=== PATIENT | male | born 1995 | race Caucasian/White ===

== ENCOUNTER 2017-10-30 14:57 | Emergency (ER) | payer SELFPAY ==
[~2017-10-30] VITALS: Ht 177.8 cm; Wt 106.6 kg
[2017-10-30 18:01] LABS: BASOPHILS # (AUTO) 0.1 10^3/uL (0.0-0.1); BASOPHILS % (AUTO) 1 % (0-10); EOSINOPHILS # (AUTO) 0.2 10^3/uL (0.0-0.3); EOSINOPHILS % (AUTO) 2 % (0-10); HEMATOCRIT 47 % (40-54); HEMOGLOBIN 16.5 G/DL (13.3-17.7); LYMPHOCYTES # (AUTO) 2.1 X 10^3 (1.0-4.0); LYMPHOCYTES % (AUTO) 21 % (12-44); MEAN CORPUSCULAR HEMOGLOBIN 30 PG (25-34); MEAN CORPUSCULAR HGB CONC 35 G/DL (32-36); MEAN CORPUSCULAR VOLUME 85 FL (80-99); MEAN PLATELET VOLUME 10.6 FL (7.4-10.4); MONOCYTES # (AUTO) 0.7 X 10^3 (0.0-1.0); MONOCYTES % (AUTO) 7 % (0-12); NEUTROPHILS % (AUTO) 70 % (42-75); PLATELET COUNT 198 10^3/uL (130-400); RED BLOOD COUNT 5.53 10^6/uL (4.35-5.85); RED CELL DISTRIBUTION WIDTH 13.6 % (10.0-14.5)
[2017-10-30 18:03] LABS: BILIRUBIN,URINE NEGATIVE (NEGATIVE); CLARITY,URINE CLEAR; COLOR,URINE YELLOW; GLUCOSE, URINE (UA) NEGATIVE (NEGATIVE); KETONES,URINE NEGATIVE (NEGATIVE); LEUKOCYTE ESTERASE ,URINE NEGATIVE (NEGATIVE); NITRITE,URINE NEGATIVE (NEGATIVE); PH,URINE 6 (5-9); PROTEIN,URINE NEGATIVE (NEGATIVE); UROBILINOGEN,URINE NORMAL (NORMAL)
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
[2017-10-30 18:14] LABS: AMPHETAMINE SCREEN, URINE NEGATIVE (NEGATIVE); BARBITURATE SCREEN URINE NEGATIVE (NEGATIVE); BENZODIAZEPINES SCREEN URINE NEGATIVE (NEGATIVE); CANNABINOID SCREEN, URINE POSITIVE (NEGATIVE); COCAINE SCREEN URINE NEGATIVE (NEGATIVE); METHADONE STAT NEGATIVE (NEGATIVE); METHAMPHETAMINE SCREEN URINE S NEGATIVE (NEGATIVE); OPIATE SCREEN URINE NEGATIVE (NEGATIVE); OXYCODONE STAT NEGATIVE (NEGATIVE); PROPOXYPHENE STAT NEGATIVE (NEGATIVE); TRICYCLIC ANTIDEPRESSANTS SCRE NEGATIVE (NEGATIVE)
[2017-10-30 18:20] LABS: BACTERIA,URINE NEGATIVE /HPF
[2017-10-30 19:22] LABS: ALANINE AMINOTRANSFERASE 30 U/L (0-55); ALBUMIN 4.7 GM/DL (3.2-4.5); ALKALINE PHOSPHATASE 52 U/L (40-136); BILIRUBIN,TOTAL 0.8 MG/DL (0.1-1.0); BUN/CREATININE RATIO 8; CALCIUM 9.9 MG/DL (8.5-10.1); CARBON DIOXIDE 21 MMOL/L (21-32); CHLORIDE 105 MMOL/L (98-107); CREATININE SERUM 0.96 MG/DL (0.60-1.30); GFR ESTIMATED > 60; GLUCOSE 101 MG/DL (70-105); POTASSIUM 4.1 MMOL/L (3.6-5.0); SALICYLATE < 5.0 MG/DL (5.0-20.0); SODIUM 140 MMOL/L (135-145)
[2017-10-30 19:36] LABS: ACETAMINOPHEN < 10 UG/ML (10-30)
[2017-10-30 20:00] VITALS: BP 149/93
[2017-11-01 08:46] LABS: HEPATITIS C ANTIBODY C Non-Reactive (Non-Reactive)
== END 2017-10-30 20:00 | disposition home or self-care (01) ==
LOC: ER 15:00
DX: B36.0 Pityriasis versicolor (principal); F41.9 Anxiety disorder, unspecified; G43.909 Migraine, unspecified, not intractable, without status migrainosus; F12.10 Cannabis abuse, uncomplicated
CPT/HCPCS: 36415; 80053; 80074; 80306; 80320; 80329; 81000; 84443; 85025; 86703; 86780; 87491; 87591; 93005

== ENCOUNTER → 2023-05-01 | Emergency (ER) | payer SELFPAY ==
[~2023-05-01] VITALS: Ht 177.8 cm; Wt 113.0 kg
[2023-05-01 21:50] VITALS: BP 171/90
--- NOTE | 2023-05-01 22:10 | ED Abdominal Pain ---
General Chief Complaint: - Reproductive Stated Complaint: LEFT ARM/BLADDER/GROIN PAIN Source of Information: Patient Exam Limitations: No Limitations History of Present Illness Date Seen by Provider: May 01, 2023 Time Seen by Provider: 21:55 Initial Comments Patient is a 27yo male who presents to the ER with a complaint of lower abd ominal pain, difficulty urinating off and on over the last 2 years, worse in the last 2 weeks. He has not had insurance and has not followed up with a primary care doctor. Was seen at [place] [facility] 2 and a half weeks ago, states he just had a urinalysis and was prescribed Flomax. Referred to Dr Gustafson (Urology) and he states Dr Gustafson refused to see him. Has not been taking any other medications for the discomfort. He states the flomax does help some and in the last 2 days he has been taking it twice a day. Denies blood in his urine or actual dysuria. Does occasionally have urgency. "Sharp" bladder pain. No problems with bowel movements. No painful or difficulty with erections. No painful ejaculation. No swelling. He points to his bilateral inguinal canals as the source of pain and just a bit higher on the left in the LLQ. He states at times the pain radiates into his scrotum. Denies feeling any masses in his scrotum or testicles. No prior surgeries. No heavy lifting/history of hernias. Timing/Duration: 2-3 Days Severity/Quality: Aching, Sharp Location: Periumbilical, Suprapubic Radiation: Other (scrotum) Activities at Onset: None Associated Symptoms: Denies Symptoms Allergies and Home Medications Allergies Coded Allergies: No Known Drug Allergies (Unverified , 10/30/17) Patient Home Medication List Home Medication List Reviewed: Yes No Active Prescriptions or Reported Meds Review of Systems Review of Systems Constitutional: see HPI Respiratory: No Symptoms Reported Cardiovascular: No Symptoms Reported Gastrointestinal: Abdominal Pain Genitourinary: Pain Musculoskeletal: no symptoms reported Skin: no symptoms reported All Other Systems Reviewed Negative Unless Noted: Yes Past Xizmqby-Rlbwwp-Donfwu Hx Past Medical History Surgeries: No Respiratory: No Cardiac: No Neurological: Yes Headaches /Migraines Genitourinary: No Gastrointestinal: No Musculoskeletal: No Endocrine: No Family Medical History No Pertinent Family Hx Physical Exam Vital Signs Vital Signs - First Documented 05/01/23 21:46 Temp 36.5 Pulse 79 Resp 16 B/P (MAP) 171/90 (117) Pulse Ox 100 O2 Delivery Room Air Capillary Refill : Height/Weight/BMI Height: 5'10.00" Weight: 235lbs. oz. 106.867946wn; BMI Method:Stated General Appearance: WD/WN, no apparent distress HEENT: PERRL/EOMI Respiratory: lungs clear, normal breath sounds, no respiratory distress, no accessory muscle use Cardiovascular: regular rate, rhythm Gastrointestinal: normal bowel sounds, soft, tenderness (LLQ) Genital/Rectal: normal genital exam; No blood at urethral meatus; other (no palpable inguinal LAD or hernias; no scrotal masses; uncirc) Extremities: normal range of motion, normal inspection Male: normal genitalia, no hernia, inguinal tenderness Neurologic/Psychiatric: alert, normal mood/affect, oriented x 3 Skin: normal color, warm/dry Progress/Results/Core Measures Results/Orders Lab Results Laboratory Tests Test 05/01/23 22:04 05/01/23 22:05 Range/Units White Blood Count 11.9 H 4.3-11.0 10^3/uL Red Blood Count 5.49 4.30-5.52 10^6/uL Hemoglobin 15.9 13.3-17.7 g/dL Hematocrit 48 40-54 % Mean Corpuscular Volume 87 80-99 fL Mean Corpuscular Hemoglobin 29 25-34 pg Mean Corpuscular Hemoglobin Concent 33 32-36 g/dL Red Cell Distribution Width 12.7 10.0-14.5 % Platelet Count 228 130-400 10^3/uL Mean Platelet Volume 10.2 9.0-12.2 fL Immature Granulocyte % (Auto) 0 % Neutrophils (%) (Auto) 51 42-75 % Lymphocytes (%) (Auto) 37 12-44 % Monocytes (%) (Auto) 9 0-12 % Eosinophils (%) (Auto) 2 0-10 % Basophils (%) (Auto) 1 0-10 % Neutrophils # (Auto) 6.1 1.8-7.8 10^3/uL Lymphocytes # (Auto) 4.4 H 1.0-4.0 10^3/uL Monocytes # (Auto) 1.0 0.0-1.0 10^3/uL Eosinophils # (Auto) 0.2 0.0-0.3 10^3/uL Basophils # (Auto) 0.1 0.0-0.1 10^3/uL Immature Granulocyte # (Auto) 0.0 0.0-0.1 10^3/uL Sodium Level 144 135-145 MMOL/L Potassium Level 4.6 3.6-5.0 MMOL/L Chloride Level 108 H 98-107 MMOL/L Carbon Dioxide Level 25 21-32 MMOL/L Anion Gap 11 5-14 MMOL/L Blood Urea Nitrogen 9 7-18 MG/DL Creatinine 1.11 0.60-1.30 MG/DL Estimat Glomerular Filtration Rate 94 BUN/Creatinine Ratio 8 Glucose Level 104 70-105 MG/DL Calcium Level 9.7 8.5-10.1 MG/DL Urine Color YELLOW Urine Clarity CLEAR Urine pH 8.5 5-9 Urine Specific [place] 1.015 L 1.016-1.022 Urine Protein NEGATIVE NEGATIVE Urine Glucose (UA) NEGATIVE NEGATIVE Urine Ketones TRACE H NEGATIVE Urine Nitrite NEGATIVE NEGATIVE Urine Bilirubin NEGATIVE NEGATIVE Urine Urobilinogen 0.2 < = 1.0 MG/DL Urine Leukocyte Esterase NEGATIVE NEGATIVE Urine RBC (Auto) NEGATIVE NEGATIVE Urine RBC 0-2 /HPF Urine WBC NONE /HPF Urine Squamous Epithelial Cells NONE /HPF Urine Crystals PRESENT H /LPF Urine Amorphous Sediment MOD LUCHO PHOSPHATE H /LPF Urine Bacteria NEGATIVE /HPF Urine Casts NONE /LPF Urine Mucus SMALL H /LPF Urine Culture Indicated NO My Orders Orders - JONO BILLINGSLEY MD Ed Iv/Invasive Line Start (05/01/23 22:02) Cbc With Automated Diff (05/01/23 22:02) Ua Culture If Indicated (05/01/23 22:02) Basic Metabolic Panel (05/01/23 22:02) Ct Abdomen/Pelvis W (05/01/23 22:02) Neis Agustín Dna Urine Test (05/01/23 23:51) Chlamydia Trachomatis Urine (05/01/23 23:51) Vital Signs/I&O 05/01/23 05/01/23 21:46 21:50 Temp 36.5 36.7 Pulse 79 79 Resp 16 14 B/P (MAP) 171/90 (117) 171/90 Pulse Ox 100 98 O2 Delivery Room Air Room Air Progress Progress Note : Time: 23:40 Progress Note Patient is seen and evaluated by me. Evaluation today includes physical exam, CBC, basic metabolic panel, urinalysis, CT scan of the abdomen and pelvis with IV contrast. Pertinent physical exam findings well-developed well-nourished male no acute distress, stable vitals. Afebrile. Patient has mild tenderness in the lower abdomen more pronounced on the left. exam is unremarkable, no testicular tenderness, swelling, masses. Circumcised. No penile discharge. No evidence of inguinal hernia bilaterally. Differential diagnosis based on history and physical examination, acute diverticulitis, urinary tract infection, prostatitis, kidney stone Labs independently reviewed and interpreted by me. His CBC is normal with a slightly elevated white blood cell count of 11.9. Chemistry unremarkable, urinalysis shows no evidence of infection or hematuria. CT scan of the abdomen and pelvis is also unremarkable. Patient is provided reassurance. No findings concerning for acute infection, diverticulitis UTI. Not clinically concerned about acute prostatitis. The patient did request testing for STDs. Urine for gonorrhea and chlamydia has also been added. Recommended that he continue his Flomax and follow-up with a urologist. Names provided for primary care as well as urology services in [place]. Patient is appreciative of care. All questions are sought and answered. No clinical or objective findings to warrant further studies from the emergency department. Patient is stable for discharge. Diagnostic Imaging Diagonstic Imaging: CT Comments [facility], [place] NAME: WILLIAN [facility] REC#: [id number] PT STATUS: REG ER : 1995 PHYSICIAN: JONO BILLINGSLEY MD ADMIT DATE: 05/01/23/ER Draft Date of Exam:05/01/23 CT ABDOMEN/PELVIS W PROCEDURE: CT abdomen and pelvis with contrast. TECHNIQUE: Multiple contiguous axial images were obtained through the abdomen and pelvis after administration of intravenous contrast. Auto Exposure Controls were utilized during the CT exam to meet ALARA standards for radiation dose reduction. All CT scans use one or more of the following dose optimizing techniques: automated exposure control, MA and/or KvP adjustment based on patient size and exam type or iterative reconstruction. INDICATION: 27-year-old male presents with severe lower abdominal and pelvic pain. COMPARISONS: None. FINDINGS: Lung bases are clear. Cardiac contour is normal. Liver shows uniform attenuation. Gallbladder is nondistended. Spleen and GE junction are normal. Stomach and duodenal sweep are unremarkable. Pancreas shows sharp margins. Adrenals are normal. Kidneys appear normal in size, position and contour with symmetrical perfusion of contrast. There is no evidence of obstructive uropathy. Both ureters are seen intermittently through their course and appear unremarkable. Bladder is nondistended. Nonopacified loops of small bowel are normal. Appendix is normal. Large bowel contains fecal material and gas but is mostly decompressed. There is no free air, free fluid or adenopathy. There is normal caliber of aorta, iliac and femoral arteries with normal origin of the visceral arteries. Bone windows show no overall gross abnormalities. IMPRESSION: Unremarkable postcontrast CT of the abdomen and pelvis. There is no evidence of cholecystitis, appendicitis or obstructive uropathy. No areas of peritoneal inflammation seen. Additional nonemergent findings as described above. Agree with [place] report. Dictated on workstation # [id number] Dict: 05/02/23 0502 Trans: 05/02/23 0541 [id number] Interpreted by: ELIAN WILSON MD Electronically signed by: Departure Impression Primary Impression: Lower abdominal pain Disposition: HOME, SELF-CARE Condition: Stable Departure-Patient Inst. Decision time for Depature: 23:44 Referrals: NO,LOCAL PHYSICIAN (PCP/Family) Primary Care Physician Patient Instructions: Abdominal pain Add. Discharge Instructions: Drink plenty of fluids to stay well hydrated. You can take over the counter Aleve (naproxen) 2 pills twice a day with food for pain. Always take it with food. Continue the flomax if it is helping - but really you should only take it once a day. You will need to follow up with a family doctor - Dr Yvan Watson, Dr Gustabo Correa and Dr Antwan Matias - are some names to consider. Dr Homar Arora is a Urologist (I believe) still practicing through [place]. Office: [facility] [phone] Return to the Emergency Department for any new, concerning or emergent complaints. Scripts No Active Prescriptions or Reported Meds JONO BILLINGSLEY MD May 01, 2023 22:10
[2023-05-01 22:14] LABS: BASOPHILS # (AUTO) 0.1 10^3/uL (0.0-0.1); BASOPHILS % (AUTO) 1 % (0-10); EOSINOPHILS # (AUTO) 0.2 10^3/uL (0.0-0.3); EOSINOPHILS % (AUTO) 2 % (0-10); HEMATOCRIT 48 % (40-54); HEMOGLOBIN 15.9 g/dL (13.3-17.7); LYMPHOCYTES # (AUTO) 4.4 10^3/uL (1.0-4.0); LYMPHOCYTES % (AUTO) 37 % (12-44); MEAN CORPUSCULAR HEMOGLOBIN 29 pg (25-34); MEAN CORPUSCULAR HGB CONC 33 g/dL (32-36); MEAN CORPUSCULAR VOLUME 87 fL (80-99); MEAN PLATELET VOLUME 10.2 fL (9.0-12.2); MONOCYTES % (AUTO) 9 % (0-12); NEUTROPHILS # (AUTO) 6.1 10^3/uL (1.8-7.8); NEUTROPHILS % (AUTO) 51 % (42-75); PLATELET COUNT 228 10^3/uL (130-400); WHITE BLOOD COUNT 11.9 10^3/uL (4.3-11.0)
[2023-05-01 22:18] LABS: BILIRUBIN,URINE NEGATIVE (NEGATIVE); CLARITY,URINE CLEAR; COLOR,URINE YELLOW; GLUCOSE, URINE (UA) NEGATIVE (NEGATIVE); KETONES,URINE TRACE (NEGATIVE); LEUKOCYTE ESTERASE ,URINE NEGATIVE (NEGATIVE); NITRITE,URINE NEGATIVE (NEGATIVE); PH,URINE 8.5 (5-9); PROTEIN,URINE NEGATIVE (NEGATIVE)
[2023-05-01 22:20] LABS: POTASSIUM 4.6 MMOL/L (3.6-5.0)
[2023-05-01 22:20] LABS: AMORPHOUS SEDIMENT,UR MOD AMOR PHOSPHATE /LPF; BACTERIA,URINE NEGATIVE /HPF; RBC,URINE 0-2 /HPF
[2023-05-01 22:21] LABS: CALCIUM 9.7 MG/DL (8.5-10.1)
[2023-05-01 22:25] LABS: CREATININE SERUM 1.11 MG/DL (0.60-1.30)
--- NOTE | 2023-05-02 05:42 | Diagnostic Imaging Report ---
PROCEDURE: CT abdomen and pelvis with contrast. TECHNIQUE: Multiple contiguous axial images were obtained through the abdomen and pelvis after administration of intravenous contrast. Auto Exposure Controls were utilized during the CT exam to meet ALARA standards for radiation dose reduction. All CT scans use one or more of the following dose optimizing techniques: automated exposure control, MA and/or KvP adjustment based on patient size and exam type or iterative reconstruction. INDICATION: 27-year-old male presents with severe lower abdominal and pelvic pain. COMPARISONS: None. FINDINGS: Lung bases are clear. Cardiac contour is normal. Liver shows uniform attenuation. Gallbladder is nondistended. Spleen and GE junction are normal. Stomach and duodenal sweep are unremarkable. Pancreas shows sharp margins. Adrenals are normal. Kidneys appear normal in size, position and contour with symmetrical perfusion of contrast. There is no evidence of obstructive uropathy. Both ureters are seen intermittently through their course and appear unremarkable. Bladder is nondistended. Nonopacified loops of small bowel are normal. Appendix is normal. Large bowel contains fecal material and gas but is mostly decompressed. There is no free air, free fluid or adenopathy. There is normal caliber of aorta, iliac and femoral arteries with normal origin of the visceral arteries. Bone windows show no overall gross abnormalities. IMPRESSION: Unremarkable postcontrast CT of the abdomen and pelvis. There is no evidence of cholecystitis, appendicitis or obstructive uropathy. No areas of peritoneal inflammation seen. Additional nonemergent findings as described above. Agree with [facility] report. Dictated by: Dictated on workstation # [id number]
== END ==
LOC: EDUNIT# 21:39 → ER 21:43
DX: R10.32 Left lower quadrant pain (principal); R10.33 Periumbilical pain
CPT/HCPCS: 36415; 74177; 80048; 81000; 85025; 87491; 87591